=== PATIENT | female | born 1985 | race Caucasian/White ===

== ENCOUNTER 2022-01-22 08:21 | Outpatient (CLI) | payer OTHER, SELFPAY ==
[2022-01-22 09:40] LABS: Albumin* 4.5 g/dL (3.3-5.0); Chloride* 105 mmol/L (96-114)
[2022-01-22 09:41] LABS: Potassium* 4.4 mmol/L (3.6-5.1); Sodium* 138 mmol/L (135-149)
[2022-01-22 09:43] LABS: Alkaline Phosphatase* 48 U/L (40-150); Aspartate Amino Transferase* 21 U/L (12-35); Bilirubin Total* 2.5 mg/dL (0.1-1.5); Blood Urea Nitrogen* 12 mg/dL (5-24); Carbon Dioxide* 24 mmol/L (20-32); Cholesterol* 170 mg/dL (90-199); Creatinine* 0.9 mg/dL (0.5-1.5); Estimated Glomerular Filt Rate 86 ml/min; Glucose* 93 mg/dL (60-115); Total Protein* 7.1 g/dL (6.0-8.3); Triglycerides* 52 mg/dL (40-149)
[2022-01-22 09:44] LABS: Alanine Aminotransferase* 14 U/L (4-35); Calcium* 9.2 mg/dL (8.4-10.6); HDL Cholesterol* 60 mg/dL (>=50); LDL Cholesterol Calculated 100 mg/dL (<100)
== END 2022-01-22 08:22 | disposition home or self-care (01) ==
PROVIDERS: PCP Family Medicine; Visit Provider Family Medicine
DX: Z01.419 Encounter for gynecological examination (general) (routine) without abnormal findings (principal); Z13.6 Encounter for screening for cardiovascular disorders; Z13.29 Encounter for screening for other suspected endocrine disorder
CPT/HCPCS: 80053; 80061; 84443

== ENCOUNTER 2022-11-25 08:13 | Outpatient (CLI) | payer OTHER, SELFPAY | END 2022-11-25 08:14 | disposition home or self-care (01) | LOC: AMB 12-03 08:57 | PROVIDERS: PCP Family Medicine; Visit Provider Internal Medicine | DX: S89.92XA Unspecified injury of left lower leg, initial encounter (principal); S69.91XA Unspecified injury of right wrist, hand and finger(s), initial encounter; V09.9XXA Pedestrian injured in unspecified transport accident, initial encounter; Y92.414 Local residential or business street as the place of occurrence of the external cause | CPT/HCPCS: A0998 ==

== ENCOUNTER 2022-11-25 08:35 | Emergency (ER) | payer OTHER, SELFPAY ==
[2022-11-25] VITALS (10 sets, daily range): BP systolic 89–118; BP diastolic 56–79; PULSE 55–72; RESP 12–16; TEMP 37.3; O2SAT 99–100; BMI 21.4
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
--- NOTE | 2022-11-25 08:47 | CRLHL7_ITS ---
For Patients: As a result of the Cures Act, medical imaging exams and procedure reports are released immediately into your electronic medical record. You may view this report before your referring provider. If you have questions, please contact your health care provider. Indication: Injury and pain Technique: Right wrist 3 view Comparison: None Findings: Bones: Alignment is normal. No fractures or bone lesions. Joint spaces: Unremarkable. Soft tissues: Unremarkable. Impression: No sign of acute injury in the right wrist. Dictated by Toby El MD @ 11/25/2022 9:51:19 AM (Electronically Signed)
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
[2022-11-25] MEDS: IBUPROFEN 200 MG TABLET 600 MG PO (10:48)
== END 2022-11-25 10:55 | disposition home or self-care (01) ==
PROVIDERS: Emergency Provider Internal Medicine; PCP Family Medicine
DX: M54.50 Low back pain, unspecified (principal); S60.811A Abrasion of right wrist, initial encounter; S80.812A Abrasion, left lower leg, initial encounter; V13.4XXA Pedal cycle driver injured in collision with car, pick-up truck or van in traffic accident, initial encounter
CPT/HCPCS: 72131; 73110; 99283; 99291; A9270

== ENCOUNTER 2023-02-25 08:46 | Outpatient (CLI) | payer OTHER, SELFPAY | END 2023-02-25 08:47 | disposition home or self-care (01) | PROVIDERS: PCP Family Medicine; Visit Provider Family Medicine | DX: Z00.00 Encounter for general adult medical examination without abnormal findings (principal); L70.9 Acne, unspecified; E80.4 Gilbert syndrome | CPT/HCPCS: 80048; 80076 ==

== ENCOUNTER 2024-11-16 07:07 | Outpatient (CLI) | payer BC, SELFPAY ==
--- NOTE | 2024-11-16 07:15 | CRLHL7_ITS ---
For Patients: As a result of the Century Cures Act, medical imaging exams and procedure reports are released immediately into your electronic medical record. You may view this report before your referring provider. If you have questions, please contact your health care provider. INDICATION: Missing IUD strings COMPARISON: None. TECHNIQUE: 2D sy-scale and color Doppler images were acquired of the pelvis using a transabdominal and transvaginal approach. Transvaginal imaging performed to better visualize the endometrial stripe and ovaries. FINDINGS: Sonographic images demonstrate a normal size and smooth outer contour of the uterus. Uterus measures 8.6 cm in length by 5.0 cm in AP diameter by 4.5 cm in transverse dimension. The myometrium has a normal uniform echotexture. The endometrial lining appears normal and measures 4.1 mm in composite thickness. IUD is present in good position within the endometrial canal. The right ovary measures 3.0 x 1.4 x 1.8 cm in size and the left ovary measures 2.9 x 1.4 x 2.0 cm. The ovaries demonstrate normal arterial and venous blood flow on color Doppler analysis. Trace pelvic free fluid noted. IMPRESSION: Normal position of an IUD within the endometrial canal. Dictated by Toby El MD @ 11/16/2024 10:16:53 AM (Electronically Signed)
== END 2024-11-16 07:08 | disposition home or self-care (01) ==
LOC: US 07:08
PROVIDERS: PCP Registered Nurse; Visit Provider Obstetrics & Gynecology
DX: T83.32XA Displacement of intrauterine contraceptive device, initial encounter (principal)
CPT/HCPCS: 76830; 76856

== ENCOUNTER 2024-12-30 12:01 | Emergency (ER) | payer BC, SELFPAY ==
--- OUTSIDE RECORDS SUMMARY | 2024-12-30 12:03 | XMS_ITS | Clinical Summary ---
Author Organization [facility] Address [address] [place] [id number] Care Team Providers Care Master [employer] Name Role Phone Unavailable Primary Care Provider Unavailabl e Source Comments You are receiving this document as you are listed as the primary care provider,follow-up provider, or the patient has been referred to you for consultation.This is in compliance with the Medicare and[facility] EHR Incentive Program,which states Providers who transition their patient to another setting of careor provider of care or refers their patient to another provider of care shouldprovide summary care record for each transition of care or referral. [facility] Allergies No known active allergies Medications levonorgestrel (MIRENA) 20 MCG/24HR IUD 1 Each by Intrauterine route once. Active Active Problems No known active problems Immunizations Immunization Administration Dates Next Due 4vHPV (Gardasil) 04/05/2013, 3,10/27/2012,2008,07/19/2008 HPV, Unspecified Formulation 04/05/2013,12/23/19 13,10/27/2012 HepA Adult (19+ yrs) 12/23/2015,07/19/2008 HepB, Unspecified Formulation 07/23/1999, 999,03/10/1999 Influenza IIV4 (Quadrivalent ) 0.5mL (38254) 04/19/2019 Influenza, Unspecified Formulation 04/08/2014 MMR 04/14/1999 Td 07/23/1999 Tdap 12/23/2015 Social History Tobacco Use Types Packs/Day Years Used Date Smoking Tobacco: Never Smokeless Tobacco: Never Alcohol Use Standard Drinks/Week Comments Yes 1 (1 standard drink = 0.6 oz pur e alcohol) Comments Unknown Sex and Gender Information Value Date Recorded Sex Assigned at Not on file 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 Gender Identity Not on file Sexual Orientation Not on file Last Filed Vital Signs Vital Sign Reading Time Taken Comments Blood Pressure 94/54 08/21/2018 7:14 AM CDT Pulse 65 02/19/2019 7:13 AM CDT Temperature - - Respiratory Rate - - Oxygen Saturation - - Inhaled Oxygen Concentration - - Weight - - Height - - Body Mass Index - - Plan of Treatment Health Maintenance Due Date Last Done Comments Cervical Cancer Screening Due 1986 Hep C Screening (Preventive Services) 1986 IPV (Polio) Vaccine (4 of 4 - 4-dose series) 1990 03/10/1989, 07/10/1987, 05/15/1987 HIV Screening (Preventive Services) 2002 Adult Preventive Visit 2004 COVID-19 Vaccine ( season) 2024 09/03/2020, 08/06/2020 Influenza Vaccine (#1) 2024 , 04/19/2019, 04/08/2014 DTaP/Tdap/Td Vaccine (7 - Tdap) 12/22/2025 12/23/2015, 07/23/1999, 03/10/1989, Additional history exists Zoster/Shingles Vaccine (1 of 2) 2036 HepB Vaccine Completed 07/23/1999, 04/01, 03/10/1999 HPV Vaccine Completed 04/05/2013, 08/2012, 12/22/2012, Additional history exists HepA Vaccine Aged Out 12/23/2015, 07/19/2008 No lo nger eligible based on patient's age to complete this topic Hib Vaccine Aged Out No longer eligi ble based on patient's age to complete this topic MCV4 Vaccine Aged Out No longer eligi ble based on patient's age to complete this topic Meningococcal B Vaccine Aged Out No l onger eligible based on patient's age to complete this topic Pneumococcal Vaccine Aged Out No long er eligible based on patient's age to complete this topic Insurance [facility] [employer] INS[employer]ED [facility]
--- OUTSIDE RECORDS SUMMARY | 2024-12-30 12:03 | XMS_ITS | Clinical Summary ---
Author Organization [facility] Address [address] [place] [address] Care Team Providers Care Boat Builder And Repairer Name Role Phone Angélica Chen Primary Care Provider Jacqueline vailable Allergies No known active allergies Medications LEVONORGESTREL (MIRENA IU) Inject intrauterin e. 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 Gender Identity Not on file Sexual Orientation Not on file Obstetrics History Last Filed Vital Signs Vital Sign Reading Time Taken Comments Blood Pressure 113/69 01/06/2017 5:56 PM CDT Pulse 72 01/06/2017 5:56 PM CDT Temperature 37.2 C (98.9 F) 01/06/2017 5:56 PM CDT Respiratory Rate 20 01/06/2017 5:56 PM CDT Oxygen Saturation 100% 01/06/2017 5:56 PM CDT Inhaled Oxygen Concentration - - Weight 65.8 kg (145 lb) 01/06/2017 5:56 PM CDT Height 175 cm (5' 8.9) 04/20/2016 1:22 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 Body Mass Index 21.48 04/20/2016 1:22 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 Plan of Treatment Not on file Medical Devices Implanted Type Area Food And Beverage Lead Device Identifier Shelf Expiration Date Model / Serial / Lot Repair Omnispan Meniscal 12deg - [id number] Implanted:Qty: 1 on 04/22/2016 by Dereck Cox MD at [facility] Left: Knee J [employer] J [employer] 09/29/2018 [id number] / / [id number] Repair Omnispan Meniscal 27deg - [id number] Implanted:Qty: 1 on 04/22/2016 by Dereck Cox MD at [facility] Left: Knee J [employer] J [employer] 05/01/2018 [id number] / / [id number] Repair Omnispan Meniscal 27deg - [id number] Implanted:Qty: 1 on 04/22/2016 by Dereck Cox MD at [facility] Left: Knee J [employer] J [employer]uy [employer] 07/30/2017 [id number] / / [id number] Insurance Advance Directives * Full Code (Latest Code Status on File) Date Activated Date Inactivated Comments 04/22/2016 8:14 AM 04/22/2016 12:37 PM * Full Code Date Activated Date Inactivated Comments 04/22/2016 6:06 AM 04/22/2016 8:14 AM Care Teams Boat Builder And Repairer Relationship Specialty Start Date End Date Angélica Chen PCP - General Family Practice 01/06/17
--- OUTSIDE RECORDS SUMMARY | 2024-12-30 12:03 | XMS_ITS | Clinical Summary ---
Author Organization [facility] Address [address] [place] [id number] Care Team Providers Care Cancer Program Consultant Name Role Phone Unavailable Primary Care Provider Unavailabl e Allergies No known active allergies Medications levonorgestrel (MIRENA) 20 MCG/24HR IUDIndications: October 2015 1 each by Intrauterine route once Active Active Problems Problem Noted Date Diagnosed Date Anxiety 08/05/2017 Social History Tobacco Use Types Packs/Day Years Used Date Smoking Tobacco: Never Smokeless Tobacco: Never Alcohol Use Standard Drinks/Week Comments Yes 0 (1 standard drink = 0.6 oz pur e alcohol) 1-2 per week PHQ-2 Answer Date Recorded PHQ-2 Score 0 09/08/2018 Comments No Sex and Gender Information Value Date Recorded Sex Assigned at Not on file Legal Sex Female 12:08 PM CDT Gender Identity Not on file Sexual Orientation Not on file Last Filed Vital Signs Vital Sign Reading Time Taken Comments Blood Pressure 100/64 09/08/2018 7:45 AM CDT Pulse 79 09/08/2018 7:45 AM CDT Temperature 37 C (98.6 F) 09/08/2018 7:45 AM CDT Respiratory Rate 14 09/08/2018 7:45 AM CDT Oxygen Saturation 98% 09/08/2018 7:45 AM CDT Inhaled Oxygen Concentration - - Weight 68.9 kg (152 lb) 09/08/2018 7:45 AM CDT Height 175.9 cm (5' 9.25) 06/23/2018 3:52 PM CS T Body Mass Index 22.28 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
[2024-12-30 12:25] VITALS: BP 106/60; PULSE 60; RESP 18; TEMP 37.1; O2SAT 99; BMI 21.4
--- NOTE | 2024-12-30 15:03 | ED_ITS ---
HPI - General Adult General Date Seen: 12/30/24 Chief complaint: Anxiety Stated complaint: anxiety, panic attacks Time Seen by Provider: 12/30/24 15:02 History of Present Illness HPI narrative: 39-year-old female with a history of generalized anxiety disorder, Gilbert syndrome, IUD, presenting to the ER today requesting medications for anxiety. She does have history of anxiety and panic attacks off and on the past but generally he has been able to manage them with deep breathing exercises, calming exercises. She is mention them, in the past, to her PCP but ultimately she has never had symptoms rising to the level of needing anxiety medications are antide pressants in the past. For the past couple of months, without any clear new trigger, she is having increasing anxiety, episodes of panic attack, tearfulness. Anxiety is being limiting her activities lately where she is afraid to drive. She has also had a couple episodes where she was tearful and crying overnight last night. She has decided that symptoms have now become severe enough that she would like to get on some medications. There definitely affecting her quality of life and her ability could to complete her ADLs. Since it is the holiday weekend she is not able to get in with her PCP. She came to the ER hoping that we would give her a short prescription for some anxiety medication that she can use on an as-needed basis until she can get in with her PCP (she intends to see them next week). She is not depressed. She is not having any thoughts of self-harm or suicide. No hallucinations. She is here with her . They interactive appropriately together. She has no concerns for safety. Related Data Home Medications ?Medication ?Instructions ?Recorded ?Confirmed levonorgestrel 1 intrauterine ONCE 01/21/22 12/30/24 Previous Rx's ?Medication ?Instructions ?Recorded tretinoin 0.05 % topical cream 1 applic topical QHS #4 5 grams 06/22/22 spironolactone 50 mg tablet 50 mg PO QDAY #90 tabs lorazepam 1 mg tablet (Ativan) 1 mg PO TID PRN #10 tab s 12/30/24 Allergies Allergy/AdvReac Type Severity Reaction Status Date / Time No Known Drug Allergies Allergy Verified 12/30/24 11:41 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 Will be done at end of 2024. non smoker, social EtOH What is your current living situation?: I presently have a place to live Problems where you live: lead paint or pipes In the past 12 months, utilities in danger of being shut off: no In past 12 months, lack of transportation kept you from medical appts, meetings, work, or getting things needed for daily living: no In the past 12 mos, have been you worried that your food would run out before you had money to buy more?: never true In the past 12 mos, the food you bought just didn't last and you didn't have money to buy more?: never true Smoking Status: Never smoker How often do you have a drink containing alcohol: 2-3 times a week How many standard drinks containing alcohol do you have on a typical day: 1 or 2 AUDIT-C Alcohol total score: 3 Non-prescribed substance use: denies use Caffeine: Yes How often does anyone, including family, friends and others, physically hurt you : never How often does anyone, including family, friends and others, insult or talk down to you: never How often does anyone, including family, friends and others, threaten you with harm: never How often does anyone, including family, friends and others, scream or curse at you: never Health Related Social Needs: Inadequate housing (Z59.1) Exam Narrative: Exam Narrative: Constitutional: Appears well-developed and well-nourished. Active. Non-toxic appearing. HENT: Head: Atraumatic. No signs of injury. Nose: No nasal discharge. Mouth/Throat: Mucous membranes are moist. No trismus Eyes: Conjunctivae normal and EOM are normal. Pupils are equal, round, and reactive to light. Right eye exhibits no discharge. Left eye exhibits no discharge. No icterus. Neck: Normal range of motion. Neck supple. No adenopathy. No stridor. Cardiovascular: Normal rate and regular rhythm. . Normal cap refill Pulmonary/Chest: Effort normal. No stridor. No respiratory distress. Musculoskeletal: Normal range of motion. No edema. No tenderness. No deformity. Neurological: Alert. Normal strength. No cranial nerve deficit or sensory def icit. Coordination normal. GCS eye subscore is 4. GCS verbal subscore is 5. GCS motor subscore is 6. Skin: Skin is warm. No rash noted. Psychiatric: Tearful, cooperative. See HPI. Endorsing frequent episodes of anxiety and panic that limited her ability to drive. She has been having trouble sleeping. She has not been able to calm herself using her previously effective means of deep breathing, meditation. No SI, HI. No hallucinations. No thoughts of self-harm. She has supportive family at home. She does not a lot of stress with her job, with her parents health, but no specific recent triggers to make her anxiety worse over the past couple of months. Const: Vital Signs, click to edit/add: Vital Signs - 24 hr 12/30/24 12:25 Temperature 98.7 F Pulse Rate [Right Pulse Oximeter] 60 Respiratory Rate 18 Blood Pressure [Ri ght Upper Arm] 106/60 Pulse Oximetry 99 Oxygen Delivery Me thod Room Air Course Vital Signs Vital signs: Initial Vital Signs Temperature 98.7 F 12/30/24 12:25 Temperature Source Temporal Artery Scan 12/30/24 12:25 Pulse Rate 60 12/30/24 12:25 Pulse Rhythm Regular 12/30/24 12:25 Pulse Strength 3+ Normal 12/30/24 12:25 Respiratory Rate 18 12/30/24 12:25 Blood Pressure 106/60 12/30/24 12:25 Blood Pressure Mean 75 12/30/24 12:25 Blood Pressure Position Sitting 12/30/24 12:25 Pulse Oximetry 99 12/30/24 12:25 Oxygen Delivery Method Room Air 12/30/24 12:25 Vital Signs Temperature 98.7 F 12/30/24 12:25 Pulse Rate 60 12/30/24 12:25 Respiratory Rate 18 12/30/24 12:25 Blood Pressure 106/60 12/30/24 12:25 Pulse Oximetry 99 12/30/24 12:25 Oxygen Delivery Method Room Air 12/30/24 12:25 Temperature 98.7 F 12/30/24 12:25 Pulse Rate 60 12/30/24 12:25 Respiratory Rate 18 12/30/24 12:25 Blood Pressure 106/60 12/30/24 12:25 Pulse Oximetry 99 12/30/24 12:25 Oxygen Delivery Method Room Air 12/30/24 12:25 Medications Administered Medications: Discontinued Medications Generic Name Dose Route Start Last Admin Trade Name Tracey PRN Reason Stop Dose Admin Lorazepam 1 mg 12/30/24 15:19 12/30/24 15:31 Lorazepam 1 Mg Tablet PO 12/30/24 15:20 1 mg ONCE ONE Administration Medical Decision Making [facility] Narrative Medical decision making narrative: Pleasant 39-year-old presenting to the ER today with her with concern for worsening anxiety and increasing frequency him panic attacks over the past few weeks, in particular over the past couple of days. She has a long history of anxiety with occasional panic attacks but has always been able to manage it well with nonpharmacologic means. However lately but then getting worse. She is working on getting into her PCP to help manage her anxiety over the long- term. She would be open to trying medications through her doctor. She requests a medicine that she can use p.r.n. for anxiety. Discussed options including hydroxyzine or Ativan. Discussed risks and benefits of each. Using shared decision making we decided to put her on a short course of Ativan. She understands the addictive potential of benzos, similar to opiates. She she also understands sedation precautions and will not drive. Ativan 1 mg p.o. here in the ER. Prescription for 10 1 mg tablets 1 tab p.o. t.i.d. p.r.n.. She will follow-up with her PCP this week. Discharge Plan Discharge Clinical Impression: Anxiety Patient Disposition: Home, Self-Care Condition: Stable Instructions: Anxiety (ED) Additional Instructions: As we discussed, please follow-up with your regular doctor on Tuesday or as soon as possible for a recheck to discuss her anxiety and help manage it over the long-term. You can use Ativan as needed this week and, will 0.5-1 mg by mouth every 8 hours if needed. Use caution with Ativan because it can cause dizziness, drowsiness, and can be addictive. Do not drive for 6 hours after taking a dose of Ativan. If you have any concerns, especially worsening or uncontrolled anxiety, thoughts of self-harm, hallucinations, or any other problems, please return to the ER right away. Prescriptions: New lorazepam [Ativan] 1 mg tablet 1 mg PO TID PRNQty: 10 0RF No Action levonorgestrel 20 mcg/24 hours (7 yrs) 52 mg intrauterine device 1 intrauterine ONCE spironolactone 50 mg tablet 50 mg PO QDAY Qty: 90 3RF tretinoin 0.05 % cream 1 applic topical QHS Qty: 45 1RF Follow Up/Referrals: Provider,Not a Local [Primary Care Provider, Family Practice] Stand Alone Forms: [employer] [facility] [employer] Info Instructions
== END 2024-12-30 16:24 | disposition home or self-care (01) ==
LOC: ED 15:41
PROVIDERS: Emergency Provider Emergency Medicine
DX: F41.9 Anxiety disorder, unspecified (principal)
CPT/HCPCS: 99282; 99283; A9270